=== PATIENT | male | born 1945 | race Caucasian/White ===

== ENCOUNTER → 2017-07-01 10:54 | Outpatient (CLI) | payer MEDICARE, OTHER | END | disposition home or self-care (01) | LOC: D.RAD 10:54 | DX: K22.0 Achalasia of cardia (principal) ==

== ENCOUNTER 2017-07-21 13:09 | Outpatient (CLI) | payer MEDICARE, OTHER | END 2017-07-21 21:32 | LOC: D.OPS 13:09 | DX: D64.9 Anemia, unspecified (principal) ==

== ENCOUNTER → 2017-08-12 12:23 | Outpatient (CLI) | payer MEDICARE, OTHER | END | disposition home or self-care (01) | LOC: D.OPS 12:23 | DX: M86.9 Osteomyelitis, unspecified (principal); Z01.812 Encounter for preprocedural laboratory examination ==

== ENCOUNTER → 2017-10-12 10:51 | Outpatient (CLI) | payer MEDICARE, OTHER | END | disposition home or self-care (01) | LOC: D.US 10:51 | DX: M79.661 Pain in right lower leg (principal) ==

== ENCOUNTER 2018-09-19 05:17 | Day surgery (SDC) | payer MEDICARE, OTHER ==
[~2018-09-19] VITALS: Ht 175.3 cm; Wt 69.1 kg
[2018-09-19 05:55] LABS: HEMATOCRIT 43.1 % (42.0-54.0); HEMOGLOBIN 14.3 g/dL (13.5-17.5); MCH 30.2 pg (26.0-34.0); MCHC 33.2 g/dL (31.0-37.0); MCV 91.1 fL (80.0-100.0); MEAN PLATELET VOLUME 9.6 fL (7.4-10.4); RBC 4.73 10x6/uL (4.20-6.10); RDW 16.3 % (11.5-14.5); WBC 8.7 10x3/uL (4.8-10.8)
[2018-09-19] MEDS ORDERED: NEURONTIN 400400 MG PO (06:22)
[2018-09-19] MEDS ORDERED: CARTIA XT120 MG PO (06:23)
[2018-09-19] MEDS ORDERED: CELLCEPT250 MG PO (06:24)
[2018-09-19] MEDS ORDERED: ZOCOR20 MG PO (06:24)
[2018-09-19 06:26] VITALS: BP 115/58; Ht 175.3 cm; Wt 69.1 kg
[2018-09-19] MEDS ORDERED: PINDOLOL5 MG PO (06:28)
[2018-09-19] MEDS ORDERED: XANAX0.5 MG PO (06:30)
[2018-09-19] MEDS ORDERED: CELEXA20 MG PO (06:31)
[2018-09-19] MEDS ORDERED: CENTRUM MEN'S1 EACH PO (06:31)
[2018-09-19] MEDS ORDERED: FISH OIL 1,0001 CA1 PO (06:32)
[2018-09-19] MEDS ORDERED: FUROSEMIDE20 MG PO (06:32)
[2018-09-19] MEDS ORDERED: FERROUS SULFAT325 MG PO (06:32)
[2018-09-19] MEDS ORDERED: MINOCIN50 MG PO (06:33)
[2018-09-19] MEDS ORDERED: OMEPRAZOLE20 M1 PO (06:33)
[2018-09-19] MEDS ORDERED: GALZIN50 MG PO (06:34)
[2018-09-19] MEDS ORDERED: ULTRAM50 MG PO (06:34)
--- NOTE | 2018-09-19 09:58 | NUR ---
DC INSTRUCTIONS GIVEN TO PT/SPOUSE. STATE UNDERSTANDING. DC'D IV CATH FULLY INTACT.
--- NOTE | 2018-09-19 10:10 | NUR ---
PT LEFT UNIT VIA WC AT 1010
--- NOTE | 2018-09-19 16:35 | OP ---
PATIENT NAME: DEYSI MEREDITH MEDICAL RECORD: [id number] :45 LOCATION:[facility] ADMISSION DATE: SURGEON: PATRIA PETERSEN DO DATE OF OPERATION: 09/19/2018 PROCEDURE: EGD with balloon dilation and biopsies. INDICATIONS FOR PROCEDURE: Dysphagia, heartburn, nausea, abnormal findings on CT scan, achalasia. SCOPE: Olympus video gastroscope. MEDICATIONS: Propofol 160 mg IV per Anesthesia. ESTIMATED BLOOD LOSS: Minimal. COMPLICATIONS: None. FINDINGS: Informed consent was given. The patient was made comfortable with the above medication. After reaching an adequate level of sedation by slow IV push, the patient was placed on his left side. The endoscope was advanced under direct visualization through the mouth to the second portion of the duodenum with ease. In the esophagus, there was a significant amount of retained food. The food was able to be removed through the endoscope using suction and some was pushed into the stomach. After the food was cleared from the esophagus, the esophagus was looked at closely. It was very dilated and had evidence of esophagitis in the distal third. The lower esophageal sphincter seemed hypertensive. These findings are all consistent with achalasia. The endoscope was advanced beyond the GE junction into the stomach and retroflexed to view the cardia, where evidence of a prior Maureen fundoplication was visualized. The mucosa throughout the entire stomach appeared normal. Random cold forceps biopsies were taken to submit for histopathology and to rule out the presence of H. pylori. The endoscope was advanced into the duodenum where some small clean based duodenal ulcers were visualized in the bulb. As the endoscope was advanced into the second portion of the duodenum, there were a few more ulcers which were clean based located in the second portion of the duodenum. Cold forceps biopsies were taken from the visualized portions of the small bowel to submit for histopathology. The endoscope was withdrawn back into the esophagus and cold forceps biopsies were taken from the distal third of the esophagus to submit for histopathology. An 18-20 mm CRE dilating balloon was placed through the working channel of the endoscope and an attempt was made to dilate the GE junction. The endoscope was then withdrawn from the patient. The patient tolerated the procedure well and there were no complications. IMPRESSIONS: 1. Findings consistent with achalasia. The esophagus was dilated and there was retained food within the esophagus. 2. Esophagitis related to the achalasia. 3. Evidence of a prior Maureen fundoplication. 4. Duodenitis with small, superficial, clean based ulcers in the duodenum. PLAN AND RECOMMENDATIONS: 1. Discharge home when recovery parameters are met. 2. Follow up biopsy specimen results. 3. Continue current medications, which include omeprazole 20 mg twice daily. OPERATIVE REPORT [id number] DEYSI MEREDITH 4. I recommend the diet remain as full liquids as there were solid components of food in the esophagus on today's examination. 5. I will discuss a referral with the patient and family regarding further management of achalasia. With his history, he may benefit from Botox injections and possibly a large balloon dilation. TRANSINT:[id number] Voice Confirmation ID: [id number] DOCUMENT ID: [id number] PATRIA PETERSEN DO at 1635 CC: [id number] DICTATION DATE: 09/19/18915 HISTOTECHNOLOGIST: 09/19/18 0946 [facility] [place] 09/19/18 [id number] [place] [address]
== END 2018-09-19 10:10 | disposition home or self-care (01) ==
LOC: D.OPS 05:17
PROVIDERS: Anesthesiology; ATTEND Internal Medicine Gastroenterology
DX: K20.8 Other esophagitis (principal); K29.80 Duodenitis without bleeding; Z01.812 Encounter for preprocedural laboratory examination